=== PATIENT | female | born 1995 | race Caucasian/White ===

== ENCOUNTER 2021-03-31 09:09 | Outpatient (CLI) | payer OTHER | END 2021-03-31 10:00 | disposition home or self-care (01) | LOC: PRENATAL 09:09 | PROVIDERS: ATTEND Obstetrics & Gynecology Maternal & Fetal Medicine | DX: O35.0XX1 Maternal care for (suspected) central nervous system malformation in fetus, fetus 1 (principal); O35.3XX1 Maternal care for (suspected) damage to fetus from viral disease in mother, fetus 1; O98.512 Other viral diseases complicating pregnancy, second trimester; Z36.89 Encounter for other specified antenatal screening; Z3A.22 22 weeks gestation of pregnancy ==

== ENCOUNTER 2021-06-19 08:24 | Outpatient (CLI) | payer OTHER | END 2021-06-19 09:15 | disposition home or self-care (01) | LOC: PRENATAL 08:24 | PROVIDERS: ATTEND Obstetrics & Gynecology Maternal & Fetal Medicine | DX: O36.5990 Maternal care for other known or suspected poor fetal growth, unspecified trimester, not applicable or unspecified (principal); O36.8199 Decreased fetal movements, unspecified trimester, other fetus; O35.0XX0 Maternal care for (suspected) central nervous system malformation in fetus, not applicable or unspecified; O26.849 Uterine size-date discrepancy, unspecified trimester ==

== ENCOUNTER 2021-07-15 07:15 | Inpatient (IN) | payer OTHER ==
[~2021-07-15] VITALS: Ht 152.4 cm; Wt 80.7 kg
[2021-07-16] MEDS ORDERED: PRENATAL CAPLE1 EAC1 PO (20:19)
[2021-07-16] MEDS ORDERED: IRON325 MG PO (20:19)
== END 2021-08-04 13:11 | disposition home or self-care (01) | DRG 807 ==
LOC: LDR 07-20 05:21 → OB/GYN 07-20 05:21 → LDR 08-01 20:30 → OB/GYN 08-01 20:30
PROVIDERS: ADMIT Obstetrics & Gynecology; ATTEND Obstetrics & Gynecology
PROC: 10E0XZZ Delivery of Products of Conception, External Approach (ICD-10-PCS; principal; 2021-08-01)
PROC: 0W8NXZZ Division of Female Perineum, External Approach (ICD-10-PCS; 2021-08-01)
PROC: 4A1HXCZ Monitoring of Products of Conception, Cardiac Rate, External Approach (ICD-10-PCS; 2021-08-01)
DX: O80 Encounter for full-term uncomplicated delivery (principal); Z37.0 Single live birth; Z3A.40 40 weeks gestation of pregnancy; Z20.822 Contact with and (suspected) exposure to COVID-19

== ENCOUNTER 2021-07-16 20:07 | Outpatient (CLI) | payer OTHER ==
[2021-07-16] MEDS ORDERED: PRENATAL CAPLE1 EAC1 PO (20:19)
[2021-07-16] MEDS ORDERED: IRON325 MG PO (20:19)
== END 2021-07-17 12:04 | disposition home or self-care (01) ==
LOC: OBS/DEL 20:07
PROVIDERS: ATTEND Obstetrics & Gynecology
DX: O26.853 Spotting complicating pregnancy, third trimester (principal); Z3A.38 38 weeks gestation of pregnancy

== ENCOUNTER 2021-07-20 10:41 | Outpatient (CLI) | payer OTHER ==
[~2021-07-20 10:41] MED LIST: IRON325 MG PO; PRENATAL CAPLE1 EAC1 PO
== END 2021-07-20 14:33 | disposition home or self-care (01) ==
LOC: OBS/DEL 10:41
PROVIDERS: ATTEND Obstetrics & Gynecology
DX: O47.1 False labor at or after 37 completed weeks of gestation (principal); Z3A.38 38 weeks gestation of pregnancy

== ENCOUNTER 2022-07-11 15:05 | Emergency (ER) | payer OTHER ==
[~2022-07-11] VITALS: Ht 160 cm; Wt 72.1 kg
== END 2022-07-11 21:27 | disposition home or self-care (01) ==
LOC: ER 15:05
DX: K52.9 Noninfective gastroenteritis and colitis, unspecified (principal)

== ENCOUNTER 2022-10-06 16:44 | Emergency (ER) | payer OTHER ==
[~2022-10-06] VITALS: Ht 152.4 cm; Wt 74.8 kg
[2022-10-06] MEDS ORDERED: ITCH RELIEF15 G1 TOP (19:51)
[2022-10-06] MEDS ORDERED: BENADRYL ITCH28.3 G1 TOP (19:51)
== END 2022-10-06 20:13 | disposition home or self-care (01) ==
LOC: ER 16:44
DX: R21 Rash and other nonspecific skin eruption (principal)

== ENCOUNTER 2023-03-30 09:05 | Emergency (ER) | payer OTHER ==
[~2023-03-30] VITALS: Ht 152.4 cm; Wt 77.1 kg
[~2023-03-30 09:05] MED LIST changes: +BENADRYL ITCH28.3 G1 TOP; +ITCH RELIEF15 G1 TOP
[2023-03-30] MEDS ORDERED: CLARITIN10 M1 PO (11:59)
[2023-03-30] MEDS ORDERED: SINUS RINSE ST1 EACH NASAL (11:59)
[2023-03-30] MEDS ORDERED: FLONASE ALLERG9.9 ML NASAL (11:59)
== END 2023-03-30 12:17 | disposition home or self-care (01) ==
LOC: ER 09:05
DX: R51.9 Headache, unspecified (principal); M94.0 Chondrocostal junction syndrome [Tietze]; B34.9 Viral infection, unspecified